=== PATIENT | male | born 1990 | race Two or more races ===

== ENCOUNTER 2017-05-25 00:53 | Inpatient (IN) | payer BC ==
[~2017-05-25] VITALS: Ht 172.7 cm; Wt 93.4 kg
[2017-05-25] VITALS (11 sets, daily range): BP systolic 115–162; BP diastolic 60–107
--- NOTE | 2017-05-25 00:55 | NUR ---
TO BED 3 BIB PARAMEDICS C/O ABD PAIN WITH N/V/D X3 HRS WITH HIGH BS. PT AAOX4 NO ACUTE DISTRESS NOTED, RESP EVEN AND UNLABORED. PLACE PT ON CARDIAC MONITORING, CONTINUOUS POX. PENDING ER MR [place].
--- NOTE | 2017-05-25 00:56 | NUR ---
ER MD AT BEDSIDE TO EVAL PT WITH ORDERS RECEIVED.
[2017-05-25] MEDS ORDERED: ONDANSETRON HCL/PF 4 MG/2 ML VIAL ONE (01:04)
--- NOTE | 2017-05-25 01:19 | NUR ---
RN AT BEDSIDE TO MEDICATE PT.
[2017-05-25 01:29] LABS: BASOPHILS # (AUTO) 0.1 /CMM (0.0-0.2); BASOPHILS % (AUTO) 0.4 % (0.0-2.0); EOSINOPHILS # (AUTO) 0.3 /CMM (0.0-0.7); EOSINOPHILS % (AUTO) 2.1 % (0.0-6.0); HEMATOCRIT 51 % (39-51); HEMOGLOBIN 17.6 g/dL (13.5-17.5); LYMPHOCYTES # (AUTO) 3.6 /CMM (0.8-4.8); LYMPHOCYTES % (AUTO) 25.2 % (20.0-44.0); MEAN CORPUSCULAR HEMOGLOBIN 30 PG (26.0-33.0); MEAN CORPUSCULAR HGB CONC 35 g/dl (31.0-36.0); MEAN CORPUSCULAR VOLUME 87 fL (80-96); MONOCYTES # (AUTO) 0.5 /CMM (0.1-1.30); MONOCYTES % (AUTO) 3.6 % (2.0-12.0); NEUTROPHILS # (AUTO) 9.7 /CMM (1.8-8.9); NEUTROPHILS % (AUTO) 68.7 % (43.0-81.0); PLATELET COUNT (AUTO) 350 /CMM (150-450); RDW COEFFICIENT OF VARIATION 12.5 (11.5-15.0); WHITE BLOOD COUNT (AUTO) 14.2 K/uL (4.3-11.0)
[2017-05-25] MEDS ORDERED: ONDANSETRON HCL/PF 4 MG/2 ML VIAL IVP ONE (01:30)
[2017-05-25] MEDS ORDERED: IV NS 0.9% 1,000 ML BAG IV ONE (01:30)
[2017-05-25 01:50] LABS: ALBUMIN 4.5 g/dL (3.4-5.0); BILIRUBIN,DIRECT 0.1 mg/dL (0.0-0.2); BILIRUBIN,TOTAL 0.8 mg/dL (0.2-1.0); CREATININE 1.2 mg/dL (0.6-1.3); TOTAL PROTEIN, SERUM 8.7 g/dL (6.4-8.2)
--- NOTE | 2017-05-25 02:24 | NUR ---
PANEL PAGED PER ER MD ORDER.
[2017-05-25] MEDS ORDERED: INSULIN REGULAR, HUMAN 100 UNIT in IV NS 0.9% 99 ML IV PRN ×2 (02:30)
--- NOTE | 2017-05-25 02:36 | NUR ---
ER SPOKE TO DR. BERNAL REGARDING PT ADMISSION.
[2017-05-25 02:39] LABS: APPEARANCE,URINE SL CLOUDY (CLEAR); BILIRUBIN,URINE NEGATIVE (NEGATIVE); BLOOD, URINE TRACE Ery/uL (NEGATIVE); COLOR,URINE YELLOW (YELLOW); KETONES,URINE 3+ (NEGATIVE); LEUKOCYTE ESTERASE ,URINE NEGATIVE (NEGATIVE); NITRITE, URINE NEGATIVE (NEGATIVE); PH,URINE 5.5 (5.0-8.0); PROTEIN,URINE 1+ mg/dl (NEGATIVE); UGLUCOSE 3+ mg/dL (NEGATIVE); UROBILINOGEN,URINE 0.2 EU/dL (0.2)
[2017-05-25 02:46] LABS: BACTERIA,URINE None seen /HPF (None Seen); RBC,URINE 0-2 /HPF (0-2); SQUAMOUS EPITHELIAL CELL,UR Few /HPF (None Seen); WBC,URINE 0-2 /HPF (0-3)
[2017-05-25] MEDS ORDERED: INSULIN REGULAR, HUMAN 100 UNIT/ML 10 ML VIAL ONE (02:50)
[2017-05-25] MEDS ORDERED: HYDROCODONE/APAP 5/325MG 1 EACH TABLET PO PRN (03:00)
[2017-05-25] MEDS ORDERED: ACETAMINOPHEN 325 MG TABLET PO PRN (03:00)
[2017-05-25] MEDS ORDERED: IV 1/2NS 1000 ML 1,000 ML IV PRN (03:00)
--- NOTE | 2017-05-25 03:09 | NUR ---
REPORT CALLED TO ORCHESTRA TEACHERADA DAVISON. WILL TRANSPORT PT VIA ACLS PROTOCOL.
[2017-05-25] MEDS: ONDANSETRON HCL/PF 4 MG/2 ML VIAL IVP PRN ×2 (04:19→08:12)
[2017-05-25 05:01] LABS: BASOPHILS % (AUTO) 0.1 % (0.0-2.0); EOSINOPHILS # (AUTO) 0.1 /CMM (0.0-0.7); EOSINOPHILS % (AUTO) 0.3 % (0.0-6.0); HEMATOCRIT 50 % (39-51); HEMOGLOBIN 17.2 g/dL (13.5-17.5); LYMPHOCYTES % (AUTO) 4.9 % (20.0-44.0); MEAN CORPUSCULAR HEMOGLOBIN 30 PG (26.0-33.0); MEAN CORPUSCULAR HGB CONC 34 g/dl (31.0-36.0); MEAN CORPUSCULAR VOLUME 88 fL (80-96); MONOCYTES # (AUTO) 0.7 /CMM (0.1-1.30); MONOCYTES % (AUTO) 3.5 % (2.0-12.0); NEUTROPHILS # (AUTO) 18.7 /CMM (1.8-8.9); NEUTROPHILS % (AUTO) 91.2 % (43.0-81.0); PLATELET COUNT (AUTO) 271 /CMM (150-450); RDW COEFFICIENT OF VARIATION 12.5 (11.5-15.0); RED BLOOD CELL COUNT(AUTO) 5.71 MIL/uL (4.5-6.0); WHITE BLOOD COUNT (AUTO) 20.5 K/uL (4.3-11.0)
[2017-05-25 05:20] LABS: ALBUMIN 4.3 g/dL (3.4-5.0); BILIRUBIN,TOTAL 0.5 mg/dL (0.2-1.0); CALCIUM, SERUM 9.3 mg/dL (8.5-10.1); CREATININE 1.1 mg/dL (0.6-1.3); MAGNESIUM 1.8 mg/dL (1.8-2.4); PHOSPHORUS 3.4 mg/dL (2.5-4.9); POTASSIUM 4.5 mmol/L (3.5-5.1); TOTAL PROTEIN, SERUM 8.4 g/dL (6.4-8.2)
[2017-05-25] MEDS: BLOOD SUGAR DIAGNOSTIC 1 EACH STRIP IN SCH ×19 (05:38→23:01)
--- NOTE | 2017-05-25 05:44 | NUR ---
POLE SANDER OPERATOR. ADMISSION. RECEIVED THE PT FROM ER VIA [facility]. PT ADMITTED IN THE ICU ROOM 253. FOR DKA. PT AWAKE, ALERT, FOLLOW COMMANDS. MOVIE THEATER USHER SHOWING NSR. PT ON ROOM AIR. SAT 100%. NO ACUTE DISTRESS NOTED. IV RT AND LT AC 18G. INSULIN DRIP RUNNING PER PROTOCOL.WILL CONTINUE TO MONITOR VITALS.
[2017-05-25] MEDS ORDERED: LEVOFLOXACIN 750 MG /D5W 150ML 750 MG in PREMIX 1 EA IV SCH (07:00)
[2017-05-25] MEDS: INSULIN REGULAR, HUMAN 100 UNIT in IV NS 0.9% 99 ML IV PRN ×2 (07:04)
[2017-05-25] MEDS ORDERED: PANTOPRAZOLE 40 MG TABLET.DR PO SCH (07:30)
[2017-05-25] MEDS: METRONIDAZOLE 500MG/ NS 100ML 500 MG in PREMIX 1 EA IV SCH ×3 (07:32→20:03)
[2017-05-25] MEDS: LEVOFLOXACIN 750 MG /D5W 150ML 750 MG in PREMIX 1 EA IV SCH (08:09)
[2017-05-25 08:35] LABS: BAND % (MANUAL) 1 % (0.0-5.0); EOSINOPHILS % (MANUAL) 2 % (0-4); LYMPHOCYTES % (MANUAL) 7 % (16-48); MONOCYTES % (MANUAL) 2 % (0-11.0); NEUTROPHILS % (MANUAL) 88 (42-76)
--- NOTE | 2017-05-25 08:50 | NUR ---
PT CONTINUES WITH RETCHING AND VOMITING EVEN AFTER ZOFRAN. DR GARCIA CALLED RE LABS, N AND V, MEDS, AND ALL STUDIES. SEE NEW ORDERS
[2017-05-25] MEDS ORDERED: METOCLOPRAMIDE HCL 10 MG/2 ML VIAL IV SCH ×2 (09:00→09:30)
[2017-05-25] MEDS ORDERED: IV NS 0.9% 1,000 ML BAG IV PRN (09:00)
[2017-05-25] MEDS: PANTOPRAZOLE 40 MG VIAL IV SCH (09:29)
[2017-05-25] MEDS ORDERED: IV NS 0.9% 1,000 ML IV PRN (09:30)
[2017-05-25] MEDS ORDERED: INSULIN PUMP (09:31)
[2017-05-25 09:47] LABS: CALCIUM, SERUM 9.3 mg/dL (8.5-10.1); CREATININE 1.1 mg/dL (0.6-1.3); POTASSIUM 4.8 mmol/L (3.5-5.1)
[2017-05-25] MEDS ORDERED: LORAZEPAM INJ 2 MG/ML VIAL IV ONE (10:30)
[2017-05-25] MEDS ORDERED: IV NS 0.9% 1,000 ML BAG IV STA (10:44)
[2017-05-25 11:29] LABS: MAGNESIUM 1.7 mg/dL (1.8-2.4); PHOSPHORUS 4.1 mg/dL (2.5-4.9)
[2017-05-25] MEDS ORDERED: IV NS 0.9% 1,000 ML IV ONE (11:30)
[2017-05-25] MEDS ORDERED: Magnesium 1GM/D5W 100ML PREMIX 100 ML IV SCH ×2 (13:00→15:00)
[2017-05-25] MEDS: IV D5/ 0.9% NACL 1,000 ML IV PRN ×2 (14:41→23:25)
--- NOTE | 2017-05-25 14:50 | NUR ---
MULTIPLE D/W DR GARCIA REGARDING PT'S REFUSAL TO BE NPO, CONTINUED C/O SEVERE HEADACHE AND CONTINUED EPISODIC RETCHING WITH SMALL AMTS BROWNISH EMESIS AND THAT PT IS UNHAPPY WITH TREATMENT AND INPATIENT THAT HE IS NOT FEELING BETTER. PT EDUCATED RE DX/RX/AND PLAN BUT IS MINIMALLY COMPLIANT. CONTINUES TO DRINK CLEAR LIQ. ORDERS FOR MORE ATIVAN, MAG REPLACEMENT AND SERIAL LABS.
[2017-05-25] MEDS ORDERED: LORAZEPAM INJ 2 MG/ML VIAL IV PRN (15:00)
[2017-05-25] MEDS ORDERED: Magnesium 1GM/D5W 100ML PREMIX PIGGYBACK IV ONE (15:00)
[2017-05-25 16:50] LABS: CALCIUM, SERUM 9.3 mg/dL (8.5-10.1); CREATININE 1.2 mg/dL (0.6-1.3); MAGNESIUM 2.2 mg/dL (1.8-2.4); PHOSPHORUS 3.2 mg/dL (2.5-4.9); POTASSIUM 5.4 mmol/L (3.5-5.1)
--- NOTE | 2017-05-25 17:02 | NUR ---
LABS REPORTED TO DR GARCIA. PT DRINKS FLUIDS AND VOMITS IN SPITE OF INSTRUCTIONS NOT TO DRINK
--- NOTE | 2017-05-25 19:22 | NUR ---
MECHANICAL DEVELOPMENT ENGINEER. INITIAL ASSESSMENT. RECEIVED THE PT REST ON THE BED. AWAKE, ALERT, FOLLOW COMMANDS, NPO. MARKETING COMMUNICATIONS SPECIALIST SHOWING NSR. IV RT AND LT AC 18G. IVF D5NS 150ML/H. INSULIN DRIP RUNNING. HOB ELEVATED. WILL CONTINUE TO MONITOR VITALS.
[2017-05-25 23:03] LABS: CALCIUM, SERUM 8.8 mg/dL (8.5-10.1); CREATININE 1.2 mg/dL (0.6-1.3); PHOSPHORUS 2.3 mg/dL (2.5-4.9); POTASSIUM 4.4 mmol/L (3.5-5.1)
[2017-05-26] VITALS (19 sets, daily range): BP systolic 127–167; BP diastolic 54–98
[2017-05-26] MEDS: BLOOD SUGAR DIAGNOSTIC 1 EACH STRIP IN SCH ×20 (01:00→22:01)
[2017-05-26] MEDS: INSULIN REGULAR, HUMAN 100 UNIT in IV NS 0.9% 99 ML IV PRN ×2 (02:36)
--- NOTE | 2017-05-26 03:14 | NUR ---
BOTTOM POUNDER CEMENT SHOES. AM CARE, ORAL CARE, BED BATH GIVEN. LINEN CHANGED. REMAINING SAME INSULIN RUNNING. IV RT HAND INSULIN RUNNING, IVF NS 150ML/H. HOB ELEVATED, WILL CONTINUE TO MONITOR VITALS.
[2017-05-26 05:03] LABS: BASOPHILS % (AUTO) 0.2 % (0.0-2.0); EOSINOPHILS # (AUTO) 0.2 /CMM (0.0-0.7); EOSINOPHILS % (AUTO) 1.6 % (0.0-6.0); HEMATOCRIT 46 % (39-51); HEMOGLOBIN 16.1 g/dL (13.5-17.5); LYMPHOCYTES # (AUTO) 1.7 /CMM (0.8-4.8); LYMPHOCYTES % (AUTO) 15.6 % (20.0-44.0); MEAN CORPUSCULAR HEMOGLOBIN 31 PG (26.0-33.0); MEAN CORPUSCULAR HGB CONC 35 g/dl (31.0-36.0); MEAN CORPUSCULAR VOLUME 87 fL (80-96); MONOCYTES # (AUTO) 1.1 /CMM (0.1-1.30); MONOCYTES % (AUTO) 10.4 % (2.0-12.0); NEUTROPHILS # (AUTO) 7.8 /CMM (1.8-8.9); NEUTROPHILS % (AUTO) 72.2 % (43.0-81.0); PLATELET COUNT (AUTO) 280 /CMM (150-450); WHITE BLOOD COUNT (AUTO) 10.8 K/uL (4.3-11.0)
[2017-05-26] MEDS: METRONIDAZOLE 500MG/ NS 100ML 500 MG in PREMIX 1 EA IV SCH ×3 (05:08→22:00)
[2017-05-26] MEDS: IV D5/ 0.9% NACL 1,000 ML IV PRN ×2 (05:09→16:28)
[2017-05-26 05:18] LABS: CALCIUM, SERUM 8.7 mg/dL (8.5-10.1); CREATININE 1.1 mg/dL (0.6-1.3); MAGNESIUM 1.8 mg/dL (1.8-2.4); PHOSPHORUS 1.8 mg/dL (2.5-4.9)
[2017-05-26] MEDS: LEVOFLOXACIN 750 MG /D5W 150ML 750 MG in PREMIX 1 EA IV SCH ×2 (08:14→08:16)
[2017-05-26] MEDS: PANTOPRAZOLE 40 MG VIAL IV SCH (08:19)
--- NOTE | 2017-05-26 09:20 | NUR ---
PATIENT STSTED FEELING MUCH BETTER. DENIES N/V SINCE LAST NIGHT. REMAINS ON INSULIN DRIP ADJUSTED PER MD ORDERS. ANION GAP IMPROVED. CO2 IMPROVED. UPDATED WITH PLAN OF CARE. SEEN BY DR. YUE ARCEO AWARE OF BMP, MG. PHOS RESULTS. PER MD- PHARMACY TO REPLACE PHOS PER THEIR PROTOCOL. WILL FF UP .
--- NOTE | 2017-05-26 10:00 | NUR ---
PATIENT SEEN BY DR. DEVINE AND DR. YUE CHRISTINE. PLAN OF CARE DISCUSSED BY MD WITH PATIENT. Addendum: 05/26/17 at 1535 by RODGER QUINONES RN DR. GARCIA -NOT DR. DEVINE.
[2017-05-26 11:57] LABS: CALCIUM, SERUM 9.2 mg/dL (8.5-10.1)
[2017-05-26] MEDS ORDERED: Sodium Phosphate 15 MMOL in IV D5W 250 ML IV ONE (12:00)
--- NOTE | 2017-05-26 12:00 | NUR ---
BMP RESULTS RELAYED TO DR. YUE CHRISTINE-NEW ORDERS FOR KPHOS 30 MMOL RECEIVED .
--- NOTE | 2017-05-26 13:00 | NUR ---
ON CLEAR LIQUIDS TOLERATING WELL WITHOUT NAUSEA/VOMITTING. DENIES ABDOMINAL PAIN.
[2017-05-26] MEDS: Potassium Phosphate meq 11 MEQ in IV D5W 100 ML IV SCH ×2 (13:35→16:29)
[2017-05-26 18:05] LABS: CALCIUM, SERUM 8.2 mg/dL (8.5-10.1); CREATININE 0.9 mg/dL (0.6-1.3); MAGNESIUM 1.4 mg/dL (1.8-2.4); PHOSPHORUS 2.3 mg/dL (2.5-4.9); POTASSIUM 3.1 mmol/L (3.5-5.1)
--- NOTE | 2017-05-26 18:40 | NUR ---
BMP RESULTS FOR [address] CHRISTINE-ORDERS RECEIVED. CHANGE IVF TO NS AT 100 ML/HR. TO GIVE LANTUS 10 UNITS -D/C INSULIN DRIP POST 30 MINUTES LANTUS. TO START ON FULL ADA DIET. LAGNESIUM REPLACEMENT ORDER RECEIVED.
[2017-05-26] MEDS: IV NS 0.9% 1,000 ML IV PRN (18:50)
[2017-05-26] MEDS ORDERED: DEXTROSE 50%-WATER 50 ML DISP.SYRIN IV PRN (19:00)
[2017-05-26] MEDS ORDERED: INSULIN GLARGINE, 100 UNIT/ML CARTRIDGE SQ ONE (19:00)
--- NOTE | 2017-05-26 19:30 | NUR ---
RELIGIOUS EDUCATION TEACHER INITIAL NOTE PT RECEIVED ASLEEP BUT EASILY AROUSABLE TO NAME. A/O X4 AND ABLE TO VERBALIZE NEEDS. ON ROOM AIR AND SATURATING 99%. BREATHING REGULAR, EVEN AND UNLABORED. NO NAUSEA OR VOMIT NOTED. NO C/O PAIN OR DISCOMFORT. BOTH IV'S CLEAN, PATENT WITH FLUIDS INFUSING. TELE- SINUS RHYTHM 91 WITH PAC'S. PT REFUSING TO KEEP BLOOD PRESSURE ON CONTINUOUSLY STATING ITS UNCOMFORTABLE. PT AGREED TO DO BP EVERY 2 HRS. CALL LIGHT WITHIN REACH. WILL CONTINUE TO MONITOR.
[2017-05-26] MEDS: Potassium Phosphate meq 11 MEQ in IV NS 0.9% 100 ML IV SCH ×2 (19:50→23:24)
[2017-05-26] MEDS: Magnesium 1GM/D5W 100ML PREMIX 100 ML IV SCH ×2 (19:53→21:07)
[2017-05-26] MEDS: INSULIN REGULAR, HUMAN 100 UNIT/ML 3 ML VIAL SQ PRN (22:08)
[2017-05-27] VITALS (10 sets, daily range): BP systolic 134–157; BP diastolic 79–104
[2017-05-27 05:26] LABS: CALCIUM, SERUM 8.5 mg/dL (8.5-10.1); CREATININE 0.8 mg/dL (0.6-1.3); PHOSPHORUS 2.2 mg/dL (2.5-4.9); POTASSIUM 3.7 mmol/L (3.5-5.1)
[2017-05-27] MEDS: METRONIDAZOLE 500MG/ NS 100ML 500 MG in PREMIX 1 EA IV SCH ×2 (05:30→12:06)
--- NOTE | 2017-05-27 07:05 | NUR ---
TRANS ROUTER NOTE RECEIVED PATIENT FROM PM NURSE. PT A/OX4 NO C/O PAIN NO SOB. PT REFUSING TO HAVE B/P CUFF THOUGHT SHIFT. PT ALLOWS B/P EVERY 2 HR. WILL CONTINUE TO MONITOR PT CLOSELY. ALL SAFETY MEASURES IN PLACE.
--- NOTE | 2017-05-27 07:24 | NUR ---
HYBRID CAR MECHANIC CLOSING NOTE PT REMAINED STABLE DURING SHIFT. NO ACUTE DISTRESS NOTED. ALL NEEDS ATTENDED TO AND MET PROMPTLY. ALL DUE MEDS GIVEN ORDERED AND WELL TOLERATED. CALL LIGHT WITHIN REACH. WILL ENDORSE TO NEXT SHIFT FOR CONTINUITY OF CARE.
[2017-05-27] MEDS: BLOOD SUGAR DIAGNOSTIC 1 EACH STRIP IN SCH ×2 (07:31→11:36)
[2017-05-27] MEDS: LEVOFLOXACIN 750 MG /D5W 150ML 750 MG in PREMIX 1 EA IV SCH (07:38)
[2017-05-27] MEDS: INSULIN REGULAR, HUMAN 100 UNIT/ML 3 ML VIAL SQ PRN (07:44)
[2017-05-27] MEDS: PANTOPRAZOLE 40 MG VIAL IV SCH (08:01)
[2017-05-27] MEDS: IV NS 0.9% 1,000 ML IV PRN (08:19)
[2017-05-27] MEDS ORDERED: Sodium Phosphate 15 MMOL in IV D5W 250 ML IV ONE (10:00)
[2017-05-27] MEDS ORDERED: K PHOS NEUTRAL 250 MG TABLET PO ONE (10:30)
--- NOTE | 2017-05-27 11:49 | NUR ---
INSTRUMENT TESTER NOTE PER DR. SOLER PATIENT MAY PUT ON HIS ON INSULIN PUMP. WILL CONTINUE TO MONITOR. PER PATIENT HE WILL COVER HIMSELF WITH INSULIN AND HE TOOK HIS OWN BS 221.
[2017-05-27] MEDS ORDERED: FLU VACC QS 2017-18(36MOS+)/PF 0.5 ML DISP.SYRIN IM ONE (14:00)
--- NOTE | 2017-05-27 14:36 | NUR ---
ICU DISCHARGE NOTE PATIENT DISCHARGED HOME. DC INSTRUCTIONS SIGNED AND GIVEN TO PATIENT. ALL ORDERS CARRIED OUT ALL MEDICATION GIVEN. PT MADE APPT WITH PCP FOR F/U 06/06/17. REMOVED ID BAND AND IV. PATIENT REQUESTED FLU VACCINE HAS HAD IT IN THE PAST. NO ALLERGY OR CONTRAINDICATION NOTED. NOTE FOR WORK GIVEN TO PATIENT OK PER DR. SOLER. ALL QUESTIONS AND CONCERNS ANSWERED. BS TAKEN 280 AFTER LUNCH. PT STABLE NO COMPLAINTS OR PAIN. PATIENT CLEAN AND DRY WHEELED OUT TO LOBBY ROOM MATTE WAS HER TO PUMP OPERATOR BYPRODUCTS PATIENT. BELONGING LIST SIGNED.
== END 2017-05-27 14:21 | disposition home or self-care (01) | DRG 371 ==
LOC: ER 00:56 → ICU 03:13 → EDBD 03:13
PROVIDERS: ADMIT Internal Medicine; ATTEND Internal Medicine
DX: A04.9 Bacterial intestinal infection, unspecified (principal); E10.10 Type 1 diabetes mellitus with ketoacidosis without coma; E87.3 Alkalosis; E66.9 Obesity, unspecified; E86.0 Dehydration; Z96.41 Presence of insulin pump (external) (internal); Z68.31 Body mass index [BMI] 31.0-31.9, adult; K42.9 Umbilical hernia without obstruction or gangrene; K40.90 Unilateral inguinal hernia, without obstruction or gangrene, not specified as recurrent; E78.5 Hyperlipidemia, unspecified; F17.210 Nicotine dependence, cigarettes, uncomplicated; Z82.5 Family history of asthma and other chronic lower respiratory diseases; I10 Essential (primary) hypertension; Z80.9 Family history of malignant neoplasm, unspecified
CPT/HCPCS: 36415; 71045-TC; 80048-TC; 80053-TC; 80076-TC; 81000-TC; 82010-TC; 82962-TC; 83690-TC; 83735-TC; 84100-TC; 85025-TC; 87081-TC; 87400; A4216; A4606; A9563; C9113; J1815; J1956; J2060; J2405; J3475; J3490; J7030; J7042; J7060; Q2036; Z7610

== ENCOUNTER 2022-11-06 13:32 | Inpatient (IN) | payer BC ==
[~2022-11-06] VITALS: Ht 172.7 cm; Wt 93.4 kg
[~2022-11-06 13:32] MED LIST: INSULIN PUMP
--- NOTE | 2022-11-06 13:35 | NUR ---
BIBS FOR NAUSEA/VOMITING AFTER HEAVY DRINKING LAST NIGHT FOR BIRTHDAY. TYPE 1 DM, ACCUCHECK 384. INSULIN PUMP PRESENT IN LEFT THIGH. A/O X 3, ABLE TO MAKE NEEDS KNOWN, TOLERATING WELL ON ROOM AIR.
[2022-11-06 13:56] VITALS: O2SAT 100
--- NOTE | 2022-11-06 13:57 | NUR ---
ACCUCHECK 343
--- NOTE | 2022-11-06 13:58 | NUR ---
BLOOD SAMPLES OBTAINED
[2022-11-06] MEDS ORDERED: ONDANSETRON HCL/PF 4 MG/2 ML VIAL ONE (14:11)
[2022-11-06] MEDS ORDERED: FAMOTIDINE/PF INJ 20 MG/2 ML VIAL IV ONE ×2 (14:11→14:30)
[2022-11-06 14:16] LABS: BASOPHILS % (AUTO) 0.2 % (0.0-2.0); HEMATOCRIT 50 % (39-51); LYMPHOCYTES # (AUTO) 1.8 K/uL (0.8-4.8); MEAN CORPUSCULAR HGB CONC 34 g/dl (31.0-36.0); MEAN CORPUSCULAR VOLUME 88 fL (80-96); MONOCYTES # (AUTO) 1.1 K/uL (0.1-1.30); MONOCYTES % (AUTO) 5.3 % (2.0-12.0); NEUTROPHILS # (AUTO) 17.3 K/uL (1.8-8.9); NEUTROPHILS % (AUTO) 85.5 % (43.0-81.0); PLATELET COUNT (AUTO) 349 K/uL (150-450); RED BLOOD CELL COUNT(AUTO) 5.69 MIL/uL (4.5-6.0); WHITE BLOOD COUNT (AUTO) 20.2 K/uL (4.3-11.0)
[2022-11-06 14:25] LABS: SITE, VBG Other; VBG COHb 0.5 %; VBG MetHb 0.4 %; VBG O2Hb 73.2 %; VBG OXYGEN SATURATION 73.9 %; VENT MODE, VBG RA 21%
[2022-11-06 14:25] LABS: CALCIUM, SERUM 10.4 mg/dL (8.5-10.1); CARBON DIOXIDE 18 mmol/L (21-32); CHLORIDE 94 mmol/L (98-107); CREATININE 1.2 mg/dL (0.6-1.3); GLUCOSE 361 mg/dL (74-106); POTASSIUM 3.9 mmol/L (3.5-5.1); SODIUM SERUM 137 mmol/L (136-145); UREA NITROGEN, BLOOD 17 mg/dL (7-18)
[2022-11-06] MEDS ORDERED: INSULIN REGULAR, HUMAN 100 UNIT/ML 10 ML VIAL SQ ONE (14:30)
[2022-11-06] MEDS ORDERED: ONDANSETRON HCL/PF 4 MG/2 ML VIAL IVP ONE (14:30)
[2022-11-06] MEDS ORDERED: IV NS 0.9% 1,000 ML BAG IV ONE ×2 (14:30)
[2022-11-06 14:31] LABS: ALANINE AMINOTRANSFERASE 35 U/L (12-78); ALBUMIN 4.6 g/dL (3.4-5.0); ALKALINE PHOSPHATASE 80 U/L (46-116); ASPARTATE AMINOTRANSFERASE 21 U/L (15-37); BILIRUBIN,DIRECT 0.2 mg/dL (0.0-0.2); BILIRUBIN,TOTAL 1.4 mg/dL (0.2-1.0); TOTAL PROTEIN, SERUM 8.1 g/dL (6.4-8.2)
[2022-11-06 14:44] LABS: LIPASE < 10 U/L (73-393)
[2022-11-06 14:54] LABS: LYMPHOCYTES % (MANUAL) 8 % (16-48); MONOCYTES % (MANUAL) 4 % (0-11.0); NEUTROPHILS % (MANUAL) 88 (42-76)
[2022-11-06] MEDS ORDERED: ONDANSETRON HCL/PF 4 MG/2 ML VIAL IV ONE (15:00)
[2022-11-06] MEDS ORDERED: INSULIN REGULAR, HUMAN 100 UNIT/ML 10 ML VIAL ONE (15:16)
[2022-11-06 16:17] LABS: BILIRUBIN,URINE NEGATIVE (NEGATIVE); COLOR,URINE YELLOW (YELLOW); LEUKOCYTE ESTERASE ,URINE NEGATIVE (NEGATIVE); NITRITE, URINE NEGATIVE (NEGATIVE); PROTEIN,URINE 2+ mg/dl (NEGATIVE); UGLUCOSE 2+ mg/dL (NEGATIVE); UROBILINOGEN,URINE 0.2 EU/dL (0.2)
[2022-11-06] MEDS ORDERED: IBUPROFEN 600 MG TABLET PO ONE (16:30)
[2022-11-06 16:49] LABS: BACTERIA,URINE None seen /HPF (None Seen); MUCUS,URINE Moderate /LPF (None Seen); SQUAMOUS EPITHELIAL CELL,UR None Seen /HPF (None Seen); WBC,URINE 0-2 /HPF (0-3)
[2022-11-06] MEDS ORDERED: IBUPROFEN 600 MG TABLET ONE (16:56)
[2022-11-06 19:00] VITALS: BP 125/77; TEMP 98.1; O2SAT 98
--- NOTE | 2022-11-06 19:09 | NUR ---
BG 285
[2022-11-06] MEDS ORDERED: ONDANSETRON HCL/PF 4 MG/2 ML VIAL IVP PRN (19:30)
[2022-11-06] MEDS ORDERED: Z GUARD REMEDY 4 OZ OINT TP PRN (19:30)
[2022-11-06] MEDS ORDERED: ACETAMINOPHEN 325 MG TABLET PO PRN (19:30)
[2022-11-06] MEDS ORDERED: MAGNESIUM HYDROXIDE 30 ML UDC PO PRN (19:30)
[2022-11-06] MEDS ORDERED: MAG HYDROX/AL HYDROX/SIMETH 30 ML UDC PO PRN (19:30)
[2022-11-06] MEDS ORDERED: LORAZEPAM INJ 2 MG/ML VIAL IV PRN (19:30)
[2022-11-06] MEDS ORDERED: DEXTROSE 50%-WATER 50 ML DISP.SYRIN IV PRN (20:00)
[2022-11-06] MEDS ORDERED: MORPHINE SULFATE INJ 2 MG/ML DISP.SYRIN IV PRN (20:00)
--- NOTE | 2022-11-06 20:03 | NUR ---
REPORT GIVEN TO ADA TERRELL.
--- NOTE | 2022-11-06 20:30 | NUR ---
STATISTICAL SECRETARYCODING EDUCATOR NOTES RECEIVED PATIENT FROM ER AT 2030. PATIENT IS A/O TIMES 4. NO PAIN NOTED. NO SOB NOTED. NO DISTRESS NOTED. ABLE TO MAKE NEEDS KNOWN. ALL NEEDS ATTENDED. VITAL SIGNS IN NORMAL RANGES. OVERALL SKIN INTACT. ALL THE BELONGINGS ACCOUNTED AND SIGNED FOR. PATIENT IS BRP. AMBULATORY. IN STEADY GAIT. IV ACCESS ON THE RAC # 20 INTACT AND RUNNING NS AT 150 ML/HR. EDUCATE THE PATIENT HOW TO USE THE CALL LIGHT AND TV CONTROL. VERBALIZED UNDERSTANDING. ON TELE MONITOR READING ST 105. ALL SAFETY MEASURES IN PLACE. BED LOCKED IN THE LOWEST POSITION. CALL LIGHT AND TABLE IN EASY REACH. SIDE RAILS UP TIMES 2. WILL CONTINUE TO MONITOR CLOSELY.
[2022-11-06] MEDS: IV NS 0.9% 1,000 ML IV PRN (20:47)
[2022-11-06] MEDS ORDERED: PANTOPRAZOLE 40 MG VIAL IV SCH (21:00)
[2022-11-06] MEDS: BLOOD SUGAR DIAGNOSTIC 1 EACH STRIP IN SCH (21:41)
[2022-11-06] MEDS: INSULIN REGULAR, HUMAN 100 UNIT/ML 3 ML VIAL SQ PRN (21:49)
[2022-11-06] MEDS ORDERED: INSULIN GLARGINE, 100 UNIT/ML CARTRIDGE SQ SCH (22:00)
--- NOTE | 2022-11-06 22:00 | NUR ---
RN NOTES BLOOD SUGAR CHECK RESULT NOTED 238. 15 UNITS LANTUS GIVEN ORDER.
[2022-11-06 23:33] LABS: CALCIUM, SERUM 9.4 mg/dL (8.5-10.1); CREATININE 0.9 mg/dL (0.6-1.3); POTASSIUM 3.6 mmol/L (3.5-5.1)
[2022-11-07] MEDS: BLOOD SUGAR DIAGNOSTIC 1 EACH STRIP IN SCH ×4 (00:39→12:31)
[2022-11-07] MEDS: INSULIN REGULAR, HUMAN 100 UNIT/ML 3 ML VIAL SQ PRN (00:42)
[2022-11-07] MEDS: IV NS 0.9% 1,000 ML IV PRN (03:13)
--- NOTE | 2022-11-07 04:22 | NUR ---
RN NOTES BLOOD SUGAR CHECKED , RESULT NOTED 81. NO INSULIN COVERAGE.
--- NOTE | 2022-11-07 04:22 | NUR ---
RN NOTES TYLENOL 650 MG PO GIVEN PER PATIENT REQUEST FOR TROUT PAIN 06/22 AT 0407. WILL ASSESS PAIN IN 1 HOUR.
--- NOTE | 2022-11-07 06:37 | NUR ---
HEEL BURNISHER CLOSING NOTES PATIENT FROM ER AT 2030. PATIENT IS A/O TIMES 4. NO PAIN NOTED. NO SOB NOTED. NO DISTRESS NOTED. ABLE TO MAKE NEEDS KNOWN. ALL NEEDS ATTENDED. VITAL SIGNS IN NORMAL RANGES. PATIENT IS BRP. AMBULATORY. IN STEADY GAIT. IV ACCESS ON THE RAC # 20 INTACT AND RUNNING NS AT 150 ML/HR. ON TELE MONITOR READING SR 85. ALL DUE MEDS GIVEN ORDER. ALL SAFETY MEASURES IN PLACE. BED LOCKED IN THE LOWEST POSITION. CALL LIGHT AND TABLE IN EASY REACH. SIDE RAILS UP TIMES 2. WILL ENDORSE FOR CARRIE.
[2022-11-07 07:04] LABS: BASOPHILS % (AUTO) 0.2 % (0.0-2.0); EOSINOPHILS % (AUTO) 0.9 % (0.0-6.0); HEMATOCRIT 46 % (39-51); HEMOGLOBIN 15.3 g/dL (13.5-17.5); LYMPHOCYTES # (AUTO) 2.7 K/uL (0.8-4.8); LYMPHOCYTES % (AUTO) 15.6 % (20.0-44.0); MEAN CORPUSCULAR HGB CONC 34 g/dl (31.0-36.0); MEAN CORPUSCULAR VOLUME 89 fL (80-96); MONOCYTES # (AUTO) 1.9 K/uL (0.1-1.30); MONOCYTES % (AUTO) 10.9 % (2.0-12.0); NEUTROPHILS # (AUTO) 12.4 K/uL (1.8-8.9); NEUTROPHILS % (AUTO) 72.4 % (43.0-81.0); PLATELET COUNT (AUTO) 231 K/uL (150-450); RED BLOOD CELL COUNT(AUTO) 5.12 MIL/uL (4.5-6.0); WHITE BLOOD COUNT (AUTO) 17.1 K/uL (4.3-11.0)
--- NOTE | 2022-11-07 07:31 | NUR ---
RICE DRIER OPENING NOTE Received patient in bed, awake. A/O x 4, able to make needs known. On room air, tolerating well, no sob. IV access in RAC #20g running NS at 150ml/hr, infusing well. On tele monitor with current reading of SR-92. Safety measures maintained: bed in lowest locked position, side rails up x 2, call light and tray table within easy reach. Will continue to monitor.
[2022-11-07 07:49] LABS: THYROID STIMULATING HORMONE 0.375 uIU/mL (0.358-3.74)
[2022-11-07 08:27] LABS: CREATININE 0.8 mg/dL (0.6-1.3); MAGNESIUM 1.8 mg/dL (1.8-2.4); PHOSPHORUS 3.3 mg/dL (2.5-4.9); POTASSIUM 3.2 mmol/L (3.5-5.1)
[2022-11-07] MEDS ORDERED: PANTOPRAZOLE 40 MG TABLET.DR PO SCH (09:00)
[2022-11-07] MEDS ORDERED: POTASSIUM CHLORIDE 20 MEQ TAB.PRT.SR PO SCH (10:30)
[2022-11-07 10:50] LABS: CREATININE 0.9 mg/dL (0.6-1.3); POTASSIUM 3.4 mmol/L (3.5-5.1)
[2022-11-07] MEDS: POTASSIUM CHLORIDE 20 MEQ POWDER PACKET PO SCH ×2 (11:13→12:09)
[2022-11-07] MEDS ORDERED: INSULIN HUMALOG SQ (11:30)
[2022-11-07 14:36] LABS: CALCIUM, SERUM 9.3 mg/dL (8.5-10.1); CREATININE 0.8 mg/dL (0.6-1.3)
[2022-11-07] MEDS ORDERED: BISACODYL SUPP (10 MG) 10 MG/SUPP.RECT SUPP.RECT RC PRN (15:00)
--- NOTE | 2022-11-07 15:27 | NUR ---
RN NOTE Patient verbalized he already had bm and not constipated. MD aware.
--- NOTE | 2022-11-07 16:00 | NUR ---
CONTINUOUS DRYOUT OPERATOR HELPER NOTE Patient discharged to home in stable condition. A/O x 4, ambulatory, no c/o pain/discomfort. V/S taken. No skin issues noted. All belongings accounted for. Discharge packet and instruction given to patient, verbalized understanding. Tele monitor removed. IV access removed, clean and dry dressing applied on site. Patient left the unit at 1550 ambulatory. MD and Charge Nurse aware.
--- NOTE | 2022-11-08 07:24 | NUR ---
INFORMATION SENT:FACESHEET,24 HRS REPORT,DC PLANNING,DISCHARGE SUMMARY INSURANCE NAME:[facility] PPO /AUTH# [id number] FAX NO:[phone] NO OF PAGES:11 FAX SENT BY:SHON
== END 2022-11-07 16:00 | disposition home or self-care (01) | DRG 639 ==
LOC: ER 13:39 → TELE 20:03
PROVIDERS: ADMIT Nurse Practitioner Acute Care; ATTEND Nurse Practitioner Acute Care
DX: E11.10 Type 2 diabetes mellitus with ketoacidosis without coma (principal); E66.9 Obesity, unspecified; Z68.32 Body mass index [BMI] 32.0-32.9, adult; I10 Essential (primary) hypertension; E78.5 Hyperlipidemia, unspecified; D72.829 Elevated white blood cell count, unspecified; E83.52 Hypercalcemia; E86.0 Dehydration; F12.90 Cannabis use, unspecified, uncomplicated; Z91.148 Patient's other noncompliance with medication regimen for other reason; Z79.4 Long term (current) use of insulin; K59.00 Constipation, unspecified
CPT/HCPCS: 36415; 71045-TC; 80048-TC; 80061-TC; 80076-TC; 81001; 82010-TC; 82803-TC; 82962-TC; 83690-TC; 83735-TC; 84100-TC; 84443-TC; 84484-TC; 85025-TC; 87081-TC; 87086-TC; 94799-TC; A4223; C9113; G0378; J1815; J2405; J3490; J7030

== ENCOUNTER 2023-12-11 08:04 | Emergency (ER) | payer BC, OTHER ==
[~2023-12-11] VITALS: Ht 172.7 cm; Wt 95.3 kg
[~2023-12-11 08:04] MED LIST changes: +INSULIN HUMALOG SQ; -INSULIN PUMP
[2023-12-11 08:29] VITALS: BP 164/98; TEMP 97.8; O2SAT 98
== END 2023-12-11 08:30 ==
LOC: ER 08:13
DX: E11.65 Type 2 diabetes mellitus with hyperglycemia (principal); I10 Essential (primary) hypertension; F19.10 Other psychoactive substance abuse, uncomplicated; F10.129 Alcohol abuse with intoxication, unspecified; Z86.79 Personal history of other diseases of the circulatory system; Y90.9 Presence of alcohol in blood, level not specified
CPT/HCPCS: 82962-TC